=== PATIENT | female | born 1975 | race Two or more races ===

== ENCOUNTER 2016-05-30 16:39 | Emergency (ER) | payer OTHER ==
[~2016-05-30] VITALS: Ht 162.6 cm; Wt 91.6 kg
[2016-05-30 16:44] VITALS: BP 135/81
== END 2016-05-30 21:00 | disposition left against medical advice (07) ==
LOC: ER 16:46
DX: R10.9 Unspecified abdominal pain (principal); Z53.21 Procedure and treatment not carried out due to patient leaving prior to being seen by health care provider